=== PATIENT | male | born 1975 | race Caucasian/White ===

== ENCOUNTER 2016-08-16 06:02 | Emergency (ER) | payer OTHER ==
[~2016-08-16] VITALS: Ht 180.3 cm; Wt 83.6 kg
[2016-08-16] MEDS ORDERED: MOTRIN800 MG PO (07:34)
[2016-08-16 07:39] VITALS: BP 124/90
== END 2016-08-16 07:39 | disposition home or self-care (01) | DRG 552 ==
LOC: ED 06:02
DX: S16.1XXA Strain of muscle, fascia and tendon at neck level, initial encounter (principal); Y35.811A Legal intervention involving manhandling, law enforcement official injured, initial encounter; Y93.89 Activity, other specified; Y92.149 Unspecified place in prison as the place of occurrence of the external cause